=== PATIENT | female | born 1990 | race Caucasian/White ===

== ENCOUNTER → 2016-07-12 | Outpatient (REF) | payer BC, OTHER, MEDICAID ==
[2016-07-13 13:52] LABS: ANION GAP 4 MEQ/L (8-16); BLOOD UREA NITROGEN 11 MG/DL (7-18); CALCIUM LEVEL 9.2 MG/DL (8.5-10.1); CARBON DIOXIDE LEVEL 31 MEQ/L (21-32); CHLORIDE LEVEL 108 MEQ/L (98-107); CHOLESTEROL LEVEL 160 MG/DL (<200); CREATININE FOR GFR 0.86 MG/DL (0.55-1.02); GLOMERULAR FILTRATION RATE > 60.0 (>60); GLUCOSE, FASTING 96 MG/DL (70-105); POTASSIUM SERUM 4.8 MEQ/L (3.5-5.1); SODIUM LEVEL 143 MEQ/L (136-145); TRIGLYCERIDES LEVEL 85 MG/DL (<150)
== END ==
LOC: M LAB REF 12:38
PROVIDERS: ATTEND Nurse Practitioner Family
DX: E55.9 Vitamin D deficiency, unspecified (principal); Z13.220 Encounter for screening for lipoid disorders; Z13.29 Encounter for screening for other suspected endocrine disorder

== ENCOUNTER → 2017-01-24 | Outpatient (REF) | payer BC, OTHER, MEDICAID | LOC: M LAB REF 13:40 | PROVIDERS: ATTEND Nurse Practitioner Adult Health | DX: E55.9 Vitamin D deficiency, unspecified (principal) ==

== ENCOUNTER → 2017-06-10 | Outpatient (REF) | payer BC, MEDICARE, OTHER, MEDICAID ==
[2017-06-10 12:46] LABS: BASO # 0.1 10^3/uL (0.0-0.2); BASO % 0.6 % (0.0-1.0); EOS # 0.2 10^3/uL (0.0-0.50); EOS % 1.8 % (0.0-3.0); HEMATOCRIT 39.5 % (36.0-47.0); HEMOGLOBIN 13.6 g/dl (12.0-16.0); IMMATURE GRANULOCYTE % 0.4 % (0-3.0); LYMPH # 2.1 10^3/uL (1.5-6.5); LYMPH % 24.7 % (24.0-44.0); MEAN CORPUSCULAR HEMOGLOBIN 29.8 pg (27.0-33.0); MEAN CORPUSCULAR HGB CONC 34.4 g/dl (32.0-36.5); MEAN CORPUSCULAR VOLUME 86.4 fl (80.0-96.0); MONO # 0.8 10^3/uL (0.0-0.8); MONO % 10.1 % (0.0-5.0); NEUTROPHILS # 5.2 10^3/uL (1.8-7.7); NEUTROPHILS % 62.4 % (36.0-66.0); PLATELET COUNT, AUTOMATED 202 10^3/uL (150-450); RED BLOOD COUNT 4.57 10^6/uL (4.00-5.40); RED CELL DISTRIBUTION WIDTH 13.1 % (11.5-14.5); WHITE BLOOD COUNT 8.4 10^3/uL (4.0-10.0)
[2017-06-10 13:34] LABS: ERYTHROCYTE SEDIMENTATION RATE 12 mm/hr (0-20)
[2017-06-10 13:50] LABS: FOLATE 16.3 NG/ML; VITAMIN B12 LEVEL 483 PG/ML
[2017-06-10 13:56] LABS: ALBUMIN 3.9 GM/DL (3.2-5.2); ALBUMIN/GLOBULIN RATIO 1.15 (1.00-1.93); ALKALINE PHOSPHATASE 65 U/L (45-117); ALT/SGPT 30 U/L (12-78); ANION GAP 6 MEQ/L (8-16); AST/SGOT 23 U/L (7-37); BILIRUBIN,TOTAL 1.2 MG/DL (0.2-1.0); BLOOD UREA NITROGEN 14 MG/DL (7-18); CALCIUM LEVEL 8.8 MG/DL (8.5-10.1); CARBON DIOXIDE LEVEL 29 MEQ/L (21-32); CHLORIDE LEVEL 105 MEQ/L (98-107); CREATININE FOR GFR 0.76 MG/DL (0.55-1.30); GLOMERULAR FILTRATION RATE > 60.0 (>60); GLUCOSE, FASTING 68 MG/DL (70-100); POTASSIUM SERUM 4.4 MEQ/L (3.5-5.1); RHEUMATOID FACTOR QUANT < 10.0 IU/ML (0-15.0); SODIUM LEVEL 140 MEQ/L (136-145); TOTAL PROTEIN 7.3 GM/DL (6.4-8.2)
[2017-06-14 08:07] LABS: ANTINUCLEAR ANTIBODIES DIRECT Negative (Negative); COPPER PLASMA 99 ug/dL (72-166); LEAD BLOOD ADULT <1 ug/dL (0-19); MERCURY LEVEL None Detected ug/L (0.0-14.9)
[2017-06-14 10:25] LABS: ALBUMIN 4.42 GM/DL (3.29-5.55); ALBUMIN % 60.6 % (55.8-66.1); ALPHA-1-GLOBULIN % 4.1 % (2.9-4.9); ALPHA-2-GLOBULINS 0.82 GM/DL (0.42-0.99); ALPHA-2-GLOBULINS % 11.2 % (7.1-11.8); BETA-1-GLOBULINS % 6.8 % (4.7-7.2); BETA-2-GLOBULINS 0.37 GM/DL (0.19-0.55); BETA-2-GLOBULINS % 5.1 % (3.2-6.5); GAMMA GLOBULIN % 12.2 % (11.1-18.8); GAMMA GLOBULINS 0.89 GM/DL (0.65-1.58)
[2017-06-15 00:07] LABS: VITAMIN E LEVEL 11.8 mg/L (5.3-16.8)
[2017-06-15 08:07] LABS: CERULOPLASMIN 28.6 mg/dL (19.0-39.0); VITAMIN B6,PYRIDOXAL PHOSPHATE 10.9 ug/L (2.0-32.8)
== END ==
LOC: M LABNEURO 11:35
DX: R25.1 Tremor, unspecified (principal)
CPT/HCPCS: 82525

== ENCOUNTER → 2017-07-28 | Outpatient (REF) | payer BC, MEDICARE, MEDICAID ==
[2017-07-28 13:35] LABS: TOTAL 25(OH) VITAMIN D 23.7 NG/ML (30.0-100.0)
== END ==
LOC: M LAB REF 12:30
DX: E55.9 Vitamin D deficiency, unspecified (principal)
CPT/HCPCS: 82306

== ENCOUNTER → 2017-10-24 | Outpatient (REF) | payer BC, MEDICARE, MEDICAID ==
[2017-10-24 19:56] LABS: TOTAL 25(OH) VITAMIN D 19.6 NG/ML (30.0-100.0)
== END ==
LOC: M LAB REF 17:57
DX: E55.9 Vitamin D deficiency, unspecified (principal)
CPT/HCPCS: 82306

== ENCOUNTER → 2018-02-22 | Outpatient (REF) | payer BC ==
[2018-02-22 13:03] LABS: TOTAL 25(OH) VITAMIN D 26.8 NG/ML (30.0-100.0)
== END ==
LOC: M LAB REF 12:12
DX: E55.9 Vitamin D deficiency, unspecified (principal)

== ENCOUNTER → 2019-09-19 | Outpatient (REF) | payer BC, OTHER ==
[2019-09-19 13:35] LABS: APPEARANCE, URINE TURBID (CLEAR); BACTERIA, URINE AUTO 1+ (NEGATIVE); BILIRUBIN, URINE AUTO NEGATIVE (NEGATIVE); BLOOD, URINE BLOOD NEGATIVE (NEGATIVE); COLOR, URINE YELLOW (YELLOW); GLUCOSE, URINE (UA) AUTO NEGATIVE (NEGATIVE); KETONE, URINE AUTO NEGATIVE (NEGATIVE); LEUKOCYTE ESTERASE, URINE AUTO 3+ (NEGATIVE); MUCUS, URINE SMALL (NEGATIVE); NITRITE, URINE AUTO NEGATIVE (NEGATIVE); PROTEIN, URINE AUTO 1+ mg/dL (NEGATIVE); RBC, URINE AUTO 5 /HPF (0-3); SPECIFIC GRAVITY URINE AUTO 1.029 (1.002-1.035); SQUAMOUS EPITHELIAL CELL UR AU 6 /HPF (0-6); UROBILINOGEN, URINE AUTO 0.2 mg/dL (0.0-2.0); WBC, URINE AUTO 36 /HPF (0-3)
== END ==
LOC: M LAB REF 12:27
PROVIDERS: ATTEND Nurse Practitioner Family
DX: Z00.01 Encounter for general adult medical examination with abnormal findings (principal); K59.00 Constipation, unspecified; E55.9 Vitamin D deficiency, unspecified; F84.0 Autistic disorder; E66.09 Other obesity due to excess calories

== ENCOUNTER → 2019-09-19 | Outpatient (REF) | payer BC, OTHER ==
[2019-09-19 12:54] LABS: BASO # 0.1 10^3/uL (0.0-0.2); BASO % 0.7 % (0.0-1.0); EOS # 0.2 10^3/uL (0.0-0.5); EOS % 1.9 % (0.0-3.0); HEMATOCRIT 42.5 % (36.0-47.0); HEMOGLOBIN 14.4 g/dl (12.0-15.5); LYMPH # 2.8 10^3/uL (1.5-5.0); LYMPH % 33.8 % (24.0-44.0); MEAN CORPUSCULAR HEMOGLOBIN 30.5 pg (27.0-33.0); MEAN CORPUSCULAR HGB CONC 33.9 g/dl (32.0-36.5); MONO # 0.7 10^3/uL (0.0-0.8); MONO % 8.4 % (0.0-5.0); NEUTROPHILS # 4.6 10^3/uL (1.5-8.5); NEUTROPHILS % 54.8 % (36.0-66.0); PLATELET COUNT, AUTOMATED 212 10^3/uL (150-450); RED BLOOD COUNT 4.72 10^6/uL (4.00-5.40); WHITE BLOOD COUNT 8.4 10^3/uL (4.0-10.0)
[2019-09-19 13:13] LABS: ALBUMIN 3.9 GM/DL (3.2-5.2); ALT/SGPT 31 U/L (12-78); BILIRUBIN,TOTAL 0.9 MG/DL (0.2-1.0); BLOOD UREA NITROGEN 14 MG/DL (7-18); CALCIUM LEVEL 8.8 MG/DL (8.5-10.1); CARBON DIOXIDE LEVEL 29 MEQ/L (21-32); CHLORIDE LEVEL 106 MEQ/L (98-107); CHOLESTEROL LEVEL 199 MG/DL (<200); CHOLESTEROL RISK RATIO 6.419 (<5); CREATININE FOR GFR 0.79 MG/DL (0.55-1.30); FREE T4 0.94 NG/DL (0.76-1.46); GLOMERULAR FILTRATION RATE > 60.0 (>60); GLUCOSE, FASTING 80 MG/DL (70-100); HDL CHOLESTEROL 31 MG/DL (>40); LDL CHOLESTEROL 114 MG/DL (<100); NON-HDL-C 168 MG/DL; POTASSIUM SERUM 3.9 MEQ/L (3.5-5.1); SODIUM LEVEL 139 MEQ/L (136-145); TOTAL 25(OH) VITAMIN D 21.8 NG/ML (30.0-100.0); TOTAL PROTEIN 7.2 GM/DL (6.4-8.2); TRIGLYCERIDES LEVEL 268 MG/DL (<150)
[2019-09-19 13:17] LABS: HEMOGLOBIN A1c 5.6 %
== END ==
LOC: M LAB REF 12:24
PROVIDERS: ATTEND Nurse Practitioner Family
DX: Z00.01 Encounter for general adult medical examination with abnormal findings (principal); E66.09 Other obesity due to excess calories; K59.00 Constipation, unspecified; G25.0 Essential tremor; E55.9 Vitamin D deficiency, unspecified; F84.0 Autistic disorder

== ENCOUNTER → 2022-06-03 | Outpatient (REF) | payer MEDICARE, OTHER ==
[2022-06-03 12:11] LABS: BASO # 0.1 10^3/uL (0.0-0.2); BASO % 0.7 % (0.0-1.0); EOS # 0.2 10^3/uL (0.0-0.5); EOS % 1.6 % (0.0-3.0); HEMOGLOBIN 14.3 g/dl (12.0-15.5); LYMPH # 2.3 10^3/uL (1.5-5.0); LYMPH % 20.4 % (24.0-44.0); MEAN CORPUSCULAR HEMOGLOBIN 29.5 pg (27.0-33.0); MEAN CORPUSCULAR HGB CONC 33.3 g/dl (32.0-36.5); MEAN CORPUSCULAR VOLUME 88.8 fl (80.0-96.0); MONO # 0.8 10^3/uL (0.0-0.8); MONO % 6.6 % (2.0-8.0); NEUTROPHILS # 7.9 10^3/uL (1.5-8.5); NEUTROPHILS % 70.3 % (36.0-66.0); PLATELET COUNT, AUTOMATED 207 10^3/uL (150-450); RED BLOOD COUNT 4.84 10^6/uL (4.00-5.40); WHITE BLOOD COUNT 11.3 10^3/uL (4.0-10.0)
[2022-06-03 12:19] LABS: ALBUMIN 3.8 G/DL (3.2-5.2); ALKALINE PHOSPHATASE 85 U/L (46-116); ALT/SGPT 31 U/L (7.0-40); AST/SGOT 25 U/L (<34); BILIRUBIN,TOTAL 1.3 MG/DL (0.3-1.2); BLOOD UREA NITROGEN 13 MG/DL (9-23); CALCIUM LEVEL 9.2 MG/DL (8.5-10.1); CARBON DIOXIDE LEVEL 28 MMOL/L (20-31); CHLORIDE LEVEL 101 MMOL/L (98-107); CHOLESTEROL LEVEL 131 MG/DL (<200); CHOLESTEROL RISK RATIO 4.26 (<5); CREATININE FOR GFR 0.78 MG/DL (0.55-1.30); FREE T4 0.95 NG/DL (0.89-1.76); GLOMERULAR FILTRATION RATE > 60.0 (>60); GLUCOSE, FASTING 84 MG/DL (60-100); HDL CHOLESTEROL 30.7 MG/DL (>40); LDL CHOLESTEROL 48.9 MG/DL (<100); NON-HDL-C 100 MG/DL; POTASSIUM SERUM 4.3 MMOL/L (3.5-5.1); SODIUM LEVEL 137 MMOL/L (136-145); THYROID STIMULATING HORMONE 2.195 uIU/ML (0.55-4.78); TOTAL 25(OH) VITAMIN D 23.2 NG/ML (20.0-100.0); TOTAL PROTEIN 6.8 G/DL (5.7-8.2); TRIGLYCERIDES LEVEL 257 MG/DL (<150)
[2022-06-03 12:46] LABS: HEMOGLOBIN A1c 5.2 % (4.0-6.0)
== END ==
LOC: M LAB REF 11:16
PROVIDERS: ATTEND Nurse Practitioner Family
DX: E78.5 Hyperlipidemia, unspecified (principal); Z13.228 Encounter for screening for other metabolic disorders

== ENCOUNTER → 2022-08-31 | Outpatient (REF) | payer MEDICARE, OTHER ==
[2022-08-31 12:54] LABS: CHOLESTEROL RISK RATIO 4.39 (<5); HDL CHOLESTEROL 28.7 MG/DL (>40); LDL CHOLESTEROL 46.1 MG/DL (<100); NON-HDL-C 97.3 MG/DL
== END ==
LOC: M LAB REF 12:15
PROVIDERS: ATTEND Nurse Practitioner Family
DX: E78.5 Hyperlipidemia, unspecified (principal)

== ENCOUNTER → 2022-12-14 | Outpatient (REF) | payer MEDICARE, OTHER ==
[2022-12-14 18:33] LABS: CHOLESTEROL RISK RATIO 4.31 (<5); HDL CHOLESTEROL 26.9 MG/DL (>40); LDL CHOLESTEROL 50.5 MG/DL (<100); NON-HDL-C 89.1 MG/DL
== END ==
LOC: M LAB REF 17:49
PROVIDERS: ATTEND Nurse Practitioner Family
DX: E78.5 Hyperlipidemia, unspecified (principal)

== ENCOUNTER → 2023-04-28 | Outpatient (REF) | payer MEDICARE, OTHER ==
[2023-04-28 13:12] LABS: CHOLESTEROL RISK RATIO 4.89 (<5); HDL CHOLESTEROL 28.8 MG/DL (>40); LDL CHOLESTEROL 54.8 MG/DL (<100); NON-HDL-C 112.2 MG/DL
== END ==
LOC: M LAB REF 12:04
PROVIDERS: ATTEND Nurse Practitioner Family
DX: E78.5 Hyperlipidemia, unspecified (principal)

== ENCOUNTER → 2023-04-29 | Outpatient (CLI) | payer MEDICARE, OTHER | LOC: M PLAIMG 15:10 | PROVIDERS: ATTEND Psychiatry & Neurology Neurology | DX: G25.0 Essential tremor (principal); F41.8 Other specified anxiety disorders ==

== ENCOUNTER → 2023-05-18 | Outpatient (CLI) | payer MEDICARE, OTHER ==
[~2023-05-18] MED LIST: PROHANCE 279.3MG/ML 15ML VIAL ONE; PROHANCE 279.3MG/ML 5ML VIAL ONE
== END ==
LOC: M PLAIMG 12:40
PROVIDERS: ATTEND Psychiatry & Neurology Neurology
DX: G25.0 Essential tremor (principal)
CPT/HCPCS: 70553; A9576

== ENCOUNTER 2024-05-18 15:41 | Emergency (ER) | payer OTHER, MEDICARE ==
[~2024-05-18] VITALS: Ht 167.6 cm; Wt 112.6 kg
[2024-05-18] MEDS ORDERED: ATOR1TAB21 (16:08)
[2024-05-18] MEDS: BACITRACIN OINTMENT 30GM TUBE TOP ONE (18:55)
[2024-05-18 18:57] VITALS: BP 154/94; TEMP 97.5; O2SAT 100
== END 2024-05-18 19:14 | disposition home or self-care (01) ==
LOC: M ED 15:41
DX: T22.131A Burn of first degree of right upper arm, initial encounter (principal); T22.231A Burn of second degree of right upper arm, initial encounter; Z88.0 Allergy status to penicillin; Z79.899 Other long term (current) drug therapy; T31.0 Burns involving less than 10% of body surface

== ENCOUNTER → 2024-06-27 | Outpatient (REF) | payer OTHER, MEDICARE ==
[~2024-06-27] MED LIST changes: +ATOR1TAB21; -PROHANCE 279.3MG/ML 15ML VIAL ONE; -PROHANCE 279.3MG/ML 5ML VIAL ONE
[2024-06-27 14:00] LABS: CHOLESTEROL RISK RATIO 3.89 (<5); HDL CHOLESTEROL 34.7 MG/DL (>40); LDL CHOLESTEROL 65.1 MG/DL (<100); NON-HDL-C 100.3 MG/DL
== END ==
LOC: M LAB REF 13:04
PROVIDERS: ATTEND Nurse Practitioner Family
DX: E78.5 Hyperlipidemia, unspecified (principal)

== ENCOUNTER → 2024-09-10 | Outpatient (REF) | payer OTHER, MEDICARE ==
[2024-09-10 18:38] LABS: BASO # 0.1 10^3/uL (0.0-0.2); BASO % 0.6 % (0.0-1.0); EOS # 0.1 10^3/uL (0.0-0.5); EOS % 1.1 % (0.0-3.0); HEMATOCRIT 42.8 % (36.0-47.0); HEMOGLOBIN 14.7 g/dl (12.0-15.5); LYMPH # 2.9 10^3/uL (1.5-5.0); LYMPH % 23.1 % (24.0-44.0); MEAN CORPUSCULAR HEMOGLOBIN 30.8 pg (27.0-33.0); MEAN CORPUSCULAR HGB CONC 34.3 g/dl (32.0-36.5); MEAN CORPUSCULAR VOLUME 89.5 fl (80.0-96.0); MONO # 0.8 10^3/uL (0.0-0.8); MONO % 6.4 % (2.0-8.0); NEUTROPHILS # 8.6 10^3/uL (1.5-8.5); NEUTROPHILS % 68.6 % (36.0-66.0); PLATELET COUNT, AUTOMATED 202 10^3/uL (150-450); RED BLOOD COUNT 4.78 10^6/uL (4.00-5.40); WHITE BLOOD COUNT 12.5 10^3/uL (4.0-10.0)
[2024-09-10 18:54] LABS: HEMOGLOBIN A1c 5.2 % (4.0-6.0)
[2024-09-10 18:59] LABS: ALBUMIN 4.1 G/DL (3.2-5.2); ALKALINE PHOSPHATASE 84 U/L (35-104); ALT/SGPT 24 U/L (7.0-40); AST/SGOT 18 U/L (<34); BILIRUBIN,TOTAL 0.7 MG/DL (0.3-1.2); BLOOD UREA NITROGEN 16 MG/DL (9-23); CALCIUM LEVEL 9.8 MG/DL (8.5-10.1); CARBON DIOXIDE LEVEL 29 MMOL/L (20-31); CHLORIDE LEVEL 102 MMOL/L (98-107); CHOLESTEROL LEVEL 131 MG/DL (<200); CHOLESTEROL RISK RATIO 4.25 (<5); CREATININE FOR GFR 0.76 MG/DL (0.55-1.30); GLOMERULAR FILTRATION RATE > 90.0 (>60); GLUCOSE, FASTING 83 MG/DL (60-100); HDL CHOLESTEROL 30.8 MG/DL (>40); LDL CHOLESTEROL 24.8 MG/DL (<100); MAGNESIUM LEVEL 1.8 MG/DL (1.8-2.4); NON-HDL-C 100.2 MG/DL; POTASSIUM SERUM 4.2 MMOL/L (3.5-5.1); SODIUM LEVEL 140 MMOL/L (136-145); TOTAL PROTEIN 7.2 G/DL (5.7-8.2); TRIGLYCERIDES LEVEL 377 MG/DL (<150)
[2024-09-10 19:01] LABS: TOTAL 25(OH) VITAMIN D 26.7 NG/ML (20.0-100.0)
== END ==
LOC: M LAB REF 17:54
PROVIDERS: ATTEND Nurse Practitioner Family
DX: E55.9 Vitamin D deficiency, unspecified (principal); E66.9 Obesity, unspecified

== ENCOUNTER → 2025-01-23 | Outpatient (REF) | payer MEDICARE, OTHER ==
[2025-01-23 12:42] LABS: CHOLESTEROL LEVEL 141.0 MG/DL (<200); CHOLESTEROL RISK RATIO 4.18 (<5); LDL CHOLESTEROL 60.9 MG/DL (<100); NON-HDL-C 107.3 MG/DL; TRIGLYCERIDES LEVEL 232.0 MG/DL (<150)
== END ==
LOC: M LAB REF 11:48
PROVIDERS: ATTEND Nurse Practitioner Family
DX: E78.5 Hyperlipidemia, unspecified (principal)